=== PATIENT | female | born 1970 | race Caucasian/White ===

== ENCOUNTER 2017-11-12 08:45 | Emergency (ER) | payer OTHER ==
[~2017-11-12] VITALS: Ht 160 cm; Wt 66.1 kg
[~2017-11-12 08:45] MED LIST: ACID CONTROL150 MG PO; LEXAPRO10 MG PO; PREDNISONE20 MG PO
[2017-11-12 08:49] VITALS: BP 133/77
[2017-11-12 09:35] LABS: HEMATOCRIT 41.8 % (36.0-46.0); HEMOGLOBIN 14.1 G/DL (11.9-15.5); MCH 31.1 PG (29.0-34.0); MCHC 33.7 G/DL (30.0-36.0); MCV 92.1 FL (83-99); PLATELET COUNT 272 K/uL (156-360); RBC DIS.WIDTH-CV 12.4 % (11.8-14.6); RBC DIS.WIDTH-SD 41.9 % (39-53); RED BLOOD COUNT 4.54 M/uL (3.80-5.20); WHITE BLOOD COUNT 6.7 K/uL (4.1-10.2)
[2017-11-12 09:46] LABS: CHLORIDE 103 mEq/L (99-109); POTASSIUM 3.3 mEq/L (3.7-5.4); SODIUM 139 mEq/L (136-147)
[2017-11-12 09:48] LABS: GLUCOSE 96 mg/dL (70-99)
[2017-11-12 09:52] LABS: CREATININE 0.8 mg/dL (0.6-1.3); GFR ESTIMATE (CALCULATED) > 59 mL/min/
[2017-11-12 09:53] LABS: UREA NITROGEN (BUN) 19 mg/dL (9-23)
== END 2017-11-12 11:13 | disposition home or self-care (01) ==
LOC: EME 08:45
DX: R06.00 Dyspnea, unspecified (principal); F41.9 Anxiety disorder, unspecified; J45.909 Unspecified asthma, uncomplicated; Z87.891 Personal history of nicotine dependence; J30.2 Other seasonal allergic rhinitis; Z88.5 Allergy status to narcotic agent
CPT/HCPCS: 71046; 80048; 85027; 93005; 99281; 99284